=== PATIENT | male | born 1960 | race Caucasian/White ===

== ENCOUNTER → 2017-12-25 | Outpatient (CLI) | payer OTHER ==
[~2017-12-25] MED LIST: ASPEC81
--- NOTE | 2017-12-25 11:07 | DIAGNOSTIC IMAGING REPORT ---
CHEST 2 VIEWS ROUTINE CLINICAL HISTORY: Cough. COMPARISON STUDY: Chest radiograph October 26, 2009. FINDINGS: Lung volumes are normal. No pneumothorax or pleural effusion is noted. There is mild left lower lung opacity. There is minimal right upper lung opacity. There is no lobar consolidation or cavitation. Cardiac size is normal. Mediastinal contours are normal. There are old right rib fractures. There is no evidence for pulmonary edema. IMPRESSION: Mild left lower lung opacity and minimal right upper lobe opacity. Given the clinical history, the findings favor pneumonia. Post treatment radiographs to ensure resolution are recommended to exclude the possibility of an underlying nodule. Electronically signed by: Sherwin Irwin M.D. 12/25/2017 11:06 AM Dictated Date/Time: 12/25/2017 11:04 AM
== END | disposition home or self-care (01) ==
LOC: C.RAD1850 10:44
PROVIDERS: ATTEND Family Medicine
DX: R05 Cough (principal)